=== PATIENT | male | born 1935 | race Caucasian/White ===

== ENCOUNTER → 2020-08-01 | Emergency (ER) | payer OTHER ==
[~2020-08-01] VITALS: Ht 177.8 cm; Wt 90.7 kg
[~2020-08-01] MED LIST: ACETAMINOPHEN325 M1 PO; ASPIRIN81 M2 PO; ATENOLOL 25 MG25 M1 PO; CALCIUM 500 +1 EAC5; CALCIUM 600 +1 EAC5 PO; CARVEDILOL3.125 MG PO; CELEBREX 200 M200 MG; CELEBREX50 MG; COUMADIN 5 MG TA5 M1 PO; ENOXAPARIN80 MG/0.8 SQ; FUROSEMIDE 40 M40 M1 PO; LASIX 20 MG TAB20 MG PO; LISINOPRIL5 MG PO; MULTIVITAMINS PO; MULTIVITAMINS1 EAC7 PO; OMEGA 3-6-9 CO1 EACH PO; OMEPRAZOLE 20 M20 M1 PO; SIMVASTATIN80 MG PO; ULTRAM 50MG TAB50 MG PO; VITAMIN D-32000 UNIT PO; VITAMIN D10000 UNIT PO; [UNRECOGNIZED DRUG - REMARK]
--- NOTE | 2020-08-04 07:23 | EKG ---
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1935 Requested By: Tha Murdock Order Number: [id number] MD: Dileep Hughes Measurements Intervals [place] Rate: 83 P: 0 FL: 124 QRS: 0 QRSD: 323 T: 51 QT: 426 QTc: 501 Interpretive Statements A-V dual-paced rhythm No further analysis attempted due to paced rhythm Compared to ECG 01/16/2012 05:57:38 Pacing is now present Electronically Signed On 08-04-2020 7:23:06 [employer] by Dileep Hughes [email or web address] <ELECTRONICALLY SIGNED> By: Dileep Hughes MD, [facility] 08/04/20 0723 [id number] Dileep Hughes MD, FAC /EPI
== END ==
LOC: ER 21:10
DX: I46.9 Cardiac arrest, cause unspecified (principal); I25.10 Atherosclerotic heart disease of native coronary artery without angina pectoris; I25.2 Old myocardial infarction; I10 Essential (primary) hypertension; Z95.1 Presence of aortocoronary bypass graft; E78.5 Hyperlipidemia, unspecified; Z79.82 Long term (current) use of aspirin; Z79.899 Other long term (current) drug therapy; Z88.0 Allergy status to penicillin